=== PATIENT | male | born 1960 | race Caucasian/White ===

== ENCOUNTER 2019-01-19 23:37 | Emergency (ER) | payer MEDICAID ==
[~2019-01-19] VITALS: Ht 177.8 cm; Wt 88.9 kg
[2019-01-20 00:11] VITALS: BP 138/82; Ht 177.8 cm; Wt 88.9 kg
== END 2019-01-20 02:05 | disposition home or self-care (01) ==
LOC: ED 23:37
DX: M79.644 Pain in right finger(s) (principal); L02.214 Cutaneous abscess of groin
CPT/HCPCS: J2001

== ENCOUNTER 2019-07-19 20:12 | Emergency (ER) | payer MEDICAID ==
[~2019-07-19] VITALS: Ht 180.3 cm; Wt 82.6 kg
[2019-07-19 20:17] VITALS: Ht 180.3 cm; Wt 82.6 kg
[2019-07-19 20:34] LABS: microscopic required? NO
[2019-07-19 20:38] LABS: BASOPHIL % 0.4 % (0-2); PLATELET COUNT 320 x10^3mcL (130-400); RED CELL DISTRIBUTION WIDTH 13.8 % (11.5-14.5)
[2019-07-19 20:40] LABS: urine erythrocyte NEGATIVE (NEGATIVE)
[2019-07-19 20:46] LABS: CALCIUM 9.6 mg/dL (8.5-10.1); CARBON DIOXIDE 24.8 mmol/L (21-32); CHLORIDE SERUM 99 mmol/L (98-107); CREATININE SERUM 1.1 mg/dL (0.7-1.3); GFR1 > 60 mL/min; GLUCOSE SERUM 361 mg/dL (74-106); POTASSIUM SERUM 4.1 mmol/L (3.5-5.1); SODIUM SERUM 136 mmol/L (136-145)
[2019-07-19 20:51] LABS: ALBUMIN 3.9 g/dL (3.4-5.0); ALKALINE PHOSPHATASE 71 U/L (46-116); ALT/SGPT 24 U/L (16-63); AST/SGOT 12 U/L (15-37); BILIRUBIN TOTAL 0.4 mg/dL (0.20-1.00); TOTAL PROTEIN, SERUM 8.1 g/dL (6.4-8.2)
[2019-07-20 00:28] VITALS: BP 98/63
== END 2019-07-20 00:28 | disposition home or self-care (01) ==
LOC: ED 20:12
PROVIDERS: Emergency Medicine
DX: E11.65 Type 2 diabetes mellitus with hyperglycemia (principal); N48.1 Balanitis; K42.9 Umbilical hernia without obstruction or gangrene
CPT/HCPCS: 36415; 82962